=== PATIENT | female | born 1945 | race American Indian/Alaskan Native ===

== ENCOUNTER 2017-06-27 06:07 | Inpatient (IN) | payer MEDICARE ==
[2017-06-26 14:24] VITALS: BMI 29.2
[2017-06-27 06:56] LABS: BASO % 0.6 % (0.0-2.0); EOS # 0.2 K/uL (0.0-0.7); EOS % 2.5 % (0.0-4.0); HEMATOCRIT 36.6 % (34.0-47.0); LYMPH # 2.2 K/uL (1.0-4.3); LYMPH % 30.9 % (20.0-40.0); MEAN CELL VOLUME 82.7 fL (81.0-99.0); MEAN CORPUSCULAR HEMOGLOBIN 27.1 pg (27.0-31.0); MEAN CORPUSCULAR HGB CONC 32.7 g/dL (33.0-37.0); MEAN PLATELET VOLUME 7.6 fL (7.2-11.7); MONO # 0.6 K/uL (0.0-0.8); MONO % 8.7 % (0.0-10.0); RED CELL DISTRIBUTION WIDTH 13.3 % (11.5-14.5); WHITE BLOOD COUNT 7.2 K/uL (4.8-10.8)
[2017-06-27 07:05] LABS: CHLORIDE 102 mmol/L (98-107); POTASSIUM 3.9 mmol/L (3.6-5.2); SODIUM 139 mmol/L (132-148)
[2017-06-27 07:07] LABS: GFR AFRICAN-AMERICAN > 60
[2017-06-27 07:08] LABS: BLOOD UREA NITROGEN 20 mg/dL (7-17); CALCIUM 10.2 mg/dl (8.6-10.4); CARBON DIOXIDE 23 mmol/L (22-30); GLUCOSE,RANDOM 125 mg/dL (65-105)
[2017-06-27] MEDS ORDERED: HYDROmorphone 0.5 mg/0.5 ml ISec IVP PRN (08:20)
[2017-06-27] MEDS ORDERED: Lactated Ringer's 1,000 ML IV SCH (08:30)
[2017-06-27] MEDS ORDERED: Midazolam 2 MG/2 ML VIAL ONE (08:32)
[2017-06-27] MEDS ORDERED: Propofol 10 mg/ml Inj (20 ML) ONE (08:32)
[2017-06-27] MEDS ORDERED: Lactated Ringer's 1,000 ML IV ONE ×3 (08:44→13:39)
[2017-06-27] MEDS ORDERED: cefOXitin IV 2 gm in Dextrose 2 GM/50 ML BAG IVPB ONE ×2 (08:52→17:37)
[2017-06-27] MEDS ORDERED: Methylene Blue 10 mg/mL(10ml) IV ONE (09:15)
[2017-06-27] MEDS ORDERED: Clindamycin 2% Vaginal Cream(40 gm) ONE (09:44)
[2017-06-27] MEDS ORDERED: Labetalol 25mg/5ml Syringe IVP PRN (10:59)
[2017-06-27] MEDS: HYDROmorphone 0.5 mg/0.5 ml ISec IVP PRN ×3 (11:18→12:06)
[2017-06-27] MEDS ORDERED: Morphine Monoject Barrel PCA 1mg/ml IV PRN (11:49)
[2017-06-27] MEDS ORDERED: HYDROmorphone 0.5 mg/0.5 ml ISec ONE (17:23)
[2017-06-27] MEDS ORDERED: HYDROmorphone 0.5 mg/0.5 ml ISec IVP STA (17:23)
[2017-06-27] MEDS ORDERED: (Novolin R) Insulin Human Regular 100 units/ml vial SC ONE (19:17)
[2017-06-27] MEDS ORDERED: (Novolin R) Insulin Human Regular 100 units/ml vial ONE (19:27)
[2017-06-27] MEDS ORDERED: (Novolin R) Insulin Human Regular 100 units/ml vial SC PRN (19:38)
--- NOTE | 2017-06-27 21:53 | OP ---
DATE OF PROCEDURE: 06/27/2017 PREOPERATIVE DIAGNOSES: Uterine prolapse, cystocele. POSTOPERATIVE DIAGNOSES: Uterine prolapse, cystocele. PROCEDURES: Total vaginal hysterectomy, anterior colporrhaphy, Jelly plication. SURGEON: Abbie Metzger MD. TRAFFIC INVESTIGATOR: Dr. Mckeon. TYPE OF ANESTHESIA: General. FINDINGS: Third-degree uterine prolapse, second-degree cystocele. ESTIMATED BLOOD LOSS: 150 mL. COMPLICATIONS: Nil. DESCRIPTION OF PROCEDURE: After the risks, benefits, and alternatives of the planned procedures including but not limited to infection, hemorrhage, deep vein thrombosis, atelectasis, pneumonia, pulmonary embolism, damage to the bladder, damage to the ureter, renal insufficiency, renal failure, wound infection, wound dehiscence, incisional hernia, keloid formation, damage to large and small intestines, damage to inferior vena cava and aorta requiring extensive repair, anesthesia complications, electrolyte imbalance, possibility of , fluid overload, cerebral edema, air embolism, and other complications that were discussed but are not listed above had been explained to the patient and the patient's aunt, an informed consent was obtained. The patient was taken to the operating room in a stable condition. Under a suitable level of general anesthesia, she was prepped and draped in a sterile fashion after having been placed in a dorsal lithotomy position. A weighted speculum was inserted into the vagina and the cervix was then grasped using 2 single-tooth tenaculums. It was then circumferentially incised. Bladder was then dissected off the cervix using sharp dissection and blunt dissection, and the anterior cul-de-sac was sharply entered. Posterior cul-de-sac was also sharply entered. The right and left uterosacral ligaments were doubly clamped, cut, and doubly ligated using #0 Vicryl suture. The right and left cardinal ligaments were then doubly clamped, cut, and doubly ligated using #0 Vicryl suture. The right and left uterine vessels were doubly clamped, cut, and doubly ligated using #0 Vicryl suture. In the right and left upper portions of the broad ligament, the right and left side were doubly clamped, cut, and doubly ligated using #0 Vicryl suture. Both ovaries were laterally placed, atrophic, and not easily accessible vaginally, and a decision was made to leave them in place. The right and left vaginal cuffing were then closed using a suspension suture to include the ipsilateral, cardinal, and uterosacral ligaments with vaginal fold suspension. Remainder of the vaginal fold was closed using interrupted sutures of 0 Vicryl suture. An incision was made over the bladder intraurethrally over the cystocele and extended to their level of the vaginal cuff. Final cleavage was developed between the vaginal mucosa and the underlying bladder. The pubourethral ligaments were then plicated on the right and left side underneath the pubourethral ligaments. The remainder of the bladder was then elevated using interrupted sutures of 0 Vicryl suture. The redundant vaginal mucosa was then trimmed and the vaginal mucosa was re-approximated over the bladder using a running suture of 0 Vicryl with good hemostasis. At the end of the procedure, cystoscopy was performed. Urethra and bladder neck were normal. The interior of the bladder showed no evidence of injuries and both ureteric orifices were visualized on the right and left side and noted to be patent with blue dye coming from the methylene blue which had been given IV after the patient coming out. A new Messina catheter was then inserted. Vagina was then packed using a vaginal packing. The patient was transferred to the recovery room in a stable condition. Pad and instrument counts were correct x2. There were no complications. Abbie Metzger MD
[2017-06-27] MEDS ORDERED: (Novolin R) Insulin Human Regular 100 units/ml vial SC SCH (22:00)
[2017-06-28] MEDS ORDERED: (Novolin R) Insulin Human Regular 100 units/ml vial SC SCH
[2017-06-28] MEDS: cefOXitin IV 2 gm in Dextrose 2 GM/50 ML BAG IVPB SCH ×2 (00:09→09:00)
[2017-06-28 07:46] LABS: HEMATOCRIT 32.9 % (34.0-47.0); MEAN CELL VOLUME 82.4 fL (81.0-99.0); MEAN CORPUSCULAR HEMOGLOBIN 27.3 pg (27.0-31.0); MEAN CORPUSCULAR HGB CONC 33.2 g/dL (33.0-37.0); MEAN PLATELET VOLUME 7.8 fL (7.2-11.7); RED CELL DISTRIBUTION WIDTH 13.3 % (11.5-14.5)
[2017-06-28 07:51] LABS: WHITE BLOOD COUNT 16.5 K/uL (4.8-10.8)
[2017-06-28 07:57] LABS: CHLORIDE 99 mmol/L (98-107); SODIUM 135 mmol/L (132-148)
[2017-06-28 08:00] LABS: GFR AFRICAN-AMERICAN > 60
[2017-06-28] MEDS ORDERED: Acetaminophen-Codeine 300/30 mg Tab PO PRN ×2 (08:00)
[2017-06-28] MEDS ORDERED: Enoxaparin 40 mg Syringe SC SCH (08:00)
[2017-06-28 08:01] LABS: BLOOD UREA NITROGEN 17 mg/dL (7-17); CALCIUM 9.2 mg/dl (8.6-10.4); CARBON DIOXIDE 27 mmol/L (22-30); GLUCOSE,RANDOM 130 mg/dL (65-105)
[2017-06-28] MEDS ORDERED: cefOXitin IV 2 gm in Dextrose 2 GM/50 ML BAG IVPB ONE (09:00)
--- NOTE | 2017-06-28 09:21 | CP.PCM.PCO ---
Physician Communication Note - Physician Communication Note Physician Communication Note: Vaginal packing was removed @ [address] Degroot' s recs by MG,[id number]
[2017-06-28] MEDS ORDERED: GlipiZIDE 10 mg SR Tab PO SCH (10:00)
[2017-06-28] MEDS ORDERED: Metoprolol Succinate 25 mg XL Tab PO SCH (10:00)
[2017-06-28] MEDS ORDERED: Simethicone 80 mg Chewtab PO SCH (12:00)
[2017-06-28 16:43] VITALS: BP 129/72; PULSE 78; RESP 18; TEMP 98.3; O2SAT 99
--- NOTE | 2017-06-29 07:55 | PN ---
DATE: 06/27/2017 SUBJECTIVE: The patient has no complaint. She is passing flatus. Also, the patient is voiding. OBJECTIVE: VITAL SIGNS: Stable. She is afebrile. CHEST: Clear. CARDIAC: Reveals normal heart sounds without any murmurs. LUNGS: Clear. ABDOMEN: Soft. Bowel sounds are normal. PELVIC: Vaginal packing has been removed. EXTREMITIES: Nontender with no evidence of DVT. ASSESSMENT: The patient is status post total vaginal hysterectomy, anterior colporrhaphy, Jelly plication, stable. PLAN: To discharge the patient on Keflex 500 mg q.i.d. x7 days and Tylenol No. 3, 2 tablets q. 4 hourly p.r.n. for a total of 40 tablets, to be followed up in the office in one week. Abbie Metzger MD
--- NOTE | 2017-06-30 01:15 | DS ---
The patient is a 72-year-old female who was admitted with a history of uterine prolapse and a cystocele. The patient underwent a total vaginal hysterectomy and anterior colporrhaphy and a Jelly plication on 06/27/2017. She is discharged on 06/28/2017 with no complaints, to be on Keflex 500 mg t.i.d. x7 days and Percocet 2 tablets q. 4 hourly p.r.n., for a total of 40 tablets. To be followed up in the office in 1 week. The patient was voiding on discharge and was passing flatus. Abbie Metzger MD
--- NOTE | 2017-06-30 18:20 | CARD ---
APPROVED REPORT EKG Measurement Heart [id number] <Conclusion> Normal sinus rhythm Minimal voltage criteria for LVH, may be normal variant Septal infarct, age undetermined Abnormal ECG
== END 2017-06-28 15:00 | disposition home or self-care (01) | DRG 743 ==
LOC: C.OPSURG 06:07 → C.9S 06:08 → C.4M 17:12
PROVIDERS: ADMIT Obstetrics & Gynecology Reproductive Endocrinology; ATTEND Obstetrics & Gynecology Reproductive Endocrinology
PROC: 0UTC7ZZ Resection of Cervix, Via Natural or Artificial Opening (ICD-10-PCS; 2017-06-27)
PROC: 0JQC3ZZ Repair Pelvic Region Subcutaneous Tissue and Fascia, Percutaneous Approach (ICD-10-PCS; 2017-06-27)
PROC: 0TJB8ZZ Inspection of Bladder, Via Natural or Artificial Opening Endoscopic (ICD-10-PCS; 2017-06-27)
PROC: 0UT97ZZ Resection of Uterus, Via Natural or Artificial Opening (ICD-10-PCS; principal; 2017-06-27 08:30)
DX: N81.2 Incomplete uterovaginal prolapse (principal); N84.1 Polyp of cervix uteri